=== PATIENT | male | born 2000 | race African-American/Black ===

== ENCOUNTER 2025-01-24 11:51 | Emergency (ER) | payer BC, SELFPAY ==
--- NOTE | 2025-01-24 11:55 | ED.GENADULT ---
HPI - General Adult General Chief complaint: Upper Respiratory Infection Stated complaint: fatigue/chills/congestion Time Seen by Provider: 01/24/25 11:55 Source: patient Mode of arrival: ambulatory Limitations: no limitations History of Present Illness HPI narrative: Pt is a 24 y/o male presenting with c/o fatigue, chills, congestion,cough, postnasal drip, rhinorrhea. Sx began 4 days ago. 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 NO known exposure to COVID, FLU,STREP, PNA. NO additional complaints. s/o is at bedside and had sx (no testing performed) prior to onset of pt's sx Related Data Home Medications ?Medication ?Instructions ?Recorded ?Confirmed ?Last Taken ?Type No Home Medications 01/24/25 01/24/25 Unknown History Allergies Allergy/AdvReac Type Severity Reaction Status Date / Time No Known Allergies Allergy Verified 01/24/25 11:55 Review of Systems Review of Systems: CONSTITUTIONAL: Reports fatigue, chills, Denies body aches, fever, or sweats. EYES: Denies visual changes, redness, or discharge. ENT: reports rhinorrhea, congestion, rhinorrhea. denies sore throat, or otalgia. CARDIOVASCULAR: Denies chest pain, palpitations, or edema. RESPIRATORY: REports cough denies dyspnea. GASTROINTESTINAL: Denies abdominal pain, nausea, vomiting, or diarrhea. GENITOURINARY: Denies dysuria or hematuria. SKIN: Denies rash, itching, or wounds. MUSCULOSKELETAL: Denies back pain, joint pain, or myalgia. NEUROLOGIC: Denies headache, numbness, tingling, or weakness. PSYCH: Denies depression or anxiety. All systems reviewed & are unremarkable except as noted in HPI and below Exam Narrative: GENERAL: Well-appearing, well-nourished, and in no acute distress. HEAD: Normocephalic, atraumatic. EYES: EOMI. No redness or drainage. Conjunctivae normal. ENT: Mucous membranes pink and moist. Nares clear. No rhinorrhea. TMs normal bilaterally. Moderate amount of clear, postnasal drainage. Tonsils are surgically absent. Throat normal. Uvula midline. NECK: Normal AROM. Supple. No lymphadenopathy. CHEST: No respiratory distress. Clear to auscultation. HEART: Regular rate and rhythm. No murmur appreciated. Normal peripheral pulses. ABDOMEN: Soft, nontender, nondistended, normal active bowel sounds. MUSCULOSKELETAL: No bony tenderness. EXTREMITIES: Normal range of motion. No edema. SKIN: Warm, dry, no rash. Capillary refill normal. Normal skin turgor. NEURO: No focal deficits. Alert and oriented x3. Gait steady. PSYCH: Normal affect. No signs of depression or anxiety. Course Course Level of Care: Express Care Visit Vital Signs Vital signs: Vital Signs Temperature 97.7 F 01/24/25 12:05 Pulse Rate 88 01/24/25 12:05 Respiratory Rate 18 01/24/25 12:05 Blood Pressure 132/81 01/24/25 12:05 Pulse Oximetry 98 01/24/25 12:05 Oxygen Delivery Room Air 01/24/25 12:05 Temperature 97.7 F 01/24/25 12:05 Pulse Rate 88 01/24/25 12:05 Respiratory Rate 18 01/24/25 12:05 Blood Pressure 132/81 01/24/25 12:05 Pulse Oximetry 98 01/24/25 12:05 Oxygen Delivery Room Air 01/24/25 12:05 Medical Decision Making MDM Narrative Medical decision making narrative: Discussed elevated blood pressure readings with patient and advised daily BP monitoring and f/u with PCP if persisting. Vital Signs Vital Signs: Vital Signs Temperature 97.7 F 01/24/25 12:05 Pulse Rate 88 01/24/25 12:05 Respiratory Rate 18 01/24/25 12:05 Blood Pressure 132/81 01/24/25 12:05 Pulse Oximetry 98 01/24/25 12:05 Oxygen Delivery Room Air 01/24/25 12:05 Temperature 97.7 F 01/24/25 12:05 Pulse Rate 88 01/24/25 12:05 Respiratory Rate 18 01/24/25 12:05 Blood Pressure 132/81 01/24/25 12:05 Pulse Oximetry 98 01/24/25 12:05 Oxygen Delivery Room Air 01/24/25 12:05 Lab Data Labs: Lab Results 01/24/25 Range/Units 12:03 POC Influenza A Ag Positive (Negative) POC Influenza B Ag Negative (Negative) POC SARS CoV-2 Ag Negative (Negative) Discharge Plan Discharge Clinical Impression: Influenza A, Elevated blood pressure reading in office without diagnosis of hypertension Patient Disposition: Home Condition: Stable Instructions: Antibiotic Form, Influenza (DC) Additional Instructions: Go straight to ER should your symptoms become worse or should any new symptoms develop Patient Language: Guamanian Prescriptions: No Action No Home Medications Follow-up/Referrals: UNKNOWN,DOCTOR [Non-Staff] - 01/25/25 Stand Alone Forms: Work/School Release IP Time of Disposition: 12:12
[2025-01-24 12:05] VITALS: BP 132/81; PULSE 88; RESP 18; TEMP 36.5; O2SAT 98
[2025-01-24 12:21] LABS: EDCOVIDSCREEN Negative (Negative); EDINFLUASCREEN Positive (Negative); EDINFLUBSCREEN Negative (Negative)
== END 2025-01-24 12:25 | disposition home or self-care (01) ==
LOC: EXPCOLL 11:57
PROVIDERS: Emergency Provider Registered Nurse
DX: J10.1 Influenza due to other identified influenza virus with other respiratory manifestations (principal); R03.0 Elevated blood-pressure reading, without diagnosis of hypertension; Z20.822 Contact with and (suspected) exposure to COVID-19
CPT/HCPCS: 87426; 87804; 99202; G0463